=== PATIENT | female | born 1980 | race Two or more races ===

== ENCOUNTER 2019-09-10 12:36 | Emergency (ER) | payer MEDICAID, OTHER ==
[~2019-09-10] VITALS: Ht 170.2 cm; Wt 62.3 kg
[2019-09-10 12:39] VITALS: BP 155/101
[2019-09-10] MEDS ORDERED: LISI-167 PO (13:53)
== END 2019-09-10 14:29 | disposition home or self-care (01) ==
LOC: ED 14:23
DX: K02.9 Dental caries, unspecified (principal); I10 Essential (primary) hypertension; F17.200 Nicotine dependence, unspecified, uncomplicated; R51 Headache
CPT/HCPCS: 99283

== ENCOUNTER 2020-10-13 15:14 | Emergency (ER) | payer OTHER ==
[~2020-10-13] VITALS: Ht 167.6 cm; Wt 67.0 kg
[~2020-10-13 15:14] MED LIST: LISI-167 PO
[2020-10-13 15:28] VITALS: BP 165/96
== END 2020-10-13 17:34 | disposition home or self-care (01) ==
LOC: ED 16:18
DX: K02.9 Dental caries, unspecified (principal); R11.2 Nausea with vomiting, unspecified; F17.210 Nicotine dependence, cigarettes, uncomplicated; I10 Essential (primary) hypertension
CPT/HCPCS: 99283; 99406